=== PATIENT | male | born 1995 | race American Indian/Alaskan Native ===

== ENCOUNTER 2021-04-30 22:47 | Emergency (ER) | payer OTHER ==
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
[2021-04-30 23:01] VITALS: BP 135/79
== END 2021-04-30 23:10 | disposition home or self-care (01) ==
LOC: ED 22:47
DX: Z04.1 Encounter for examination and observation following transport accident (principal)
CPT/HCPCS: 99282